=== PATIENT | male | born 1950 | race Caucasian/White ===

== ENCOUNTER 2018-07-19 05:15 | Day surgery (SDC) | payer MEDICARE, OTHER ==
[2018-07-18 11:26] LABS: HEMATOCRIT 46.4 % (42.0-54.0); HEMOGLOBIN 15.7 g/dL (13.5-17.5); MCH 29.6 pg (26.0-34.0); MCHC 33.8 g/dL (31.0-37.0); MCV 87.5 fL (80.0-100.0); MEAN PLATELET VOLUME 9.6 fL (7.4-10.4); RBC 5.3 10x6/uL (4.20-6.10); RDW 14.1 % (11.5-14.5); WBC 7.4 10x3/uL (4.8-10.8)
[~2018-07-19] VITALS: Ht 180.3 cm; Wt 86.2 kg
--- NOTE | ~2018-07-19 | OP ---
PATIENT NAME: MINNA NGUYEN MEDICAL RECORD: [id number] :50 LOCATION:[facility] ADMISSION DATE: SURGEON: CANDICE THURMAN MD DATE OF OPERATION: 07/19/2018 SURGEON: Candice Thurman MD ANESTHESIA: General anesthesia by Tristan Tipton. DIAGNOSIS: Elevated PSA of 5.18. FINDINGS: A 33-gram prostate with intraprostatic stones. No hypoechoic areas. PROCEDURE: Transrectal ultrasound and prostate biopsy. SPECIMENS: Prostate biopsy cores. BLOOD LOSS: None. CLINICAL HISTORY: This is a 67-year-old male, who was found to have an elevated PSA of 5.18. He has not previously had a PSA level tested before. He has relatively mild voiding symptoms. There is no family history of prostate cancer. He comes today to have a prostate biopsy. He was not allergic to any medications and we gave him Ancef test consultant to the OR. DESCRIPTION OF PROCEDURE: The patient was given general anesthetic. He was then placed into dorsal lithotomy position. The transrectal ultrasound probe was introduced. We found the prostate size dimensions. Sextant biopsies were then obtained with at least 3 cores from each sextant. Once we obtained all the cores, the procedure was terminated. The patient was then brought to the recovery room. I will see him next week to review the pathology results with him. TRANSINT:[id number] Voice Confirmation ID: [id number] DOCUMENT ID: [id number] CANDICE THURMAN MD at 1334 CC: [id number] DICTATION DATE: 07/19/18 08 SHIPPING & RECEIVING LEAD: 07/19/18 1112 [facility] [place] 07/19/[address] [id number]
[2018-07-19 06:35] VITALS: BP 125/65; Ht 180.3 cm; Wt 86.2 kg
== END 2018-07-19 09:45 | disposition home or self-care (01) ==
LOC: D.OPS 05:15 → D.PAN 07:30 → D.OPS 08:00 → D.PAN 08:00 → D.OPS 09:45
PROVIDERS: Anesthesiology
DX: R97.20 Elevated prostate specific antigen [PSA] (principal); N41.1 Chronic prostatitis; Z01.812 Encounter for preprocedural laboratory examination

== ENCOUNTER → 2019-07-11 14:25 | Outpatient (CLI) | payer MEDICARE, OTHER ==
[2018-07-19 06:35] VITALS: BMI 26.5
== END | disposition home or self-care (01) ==
LOC: D.HCCARDIO 14:25
PROVIDERS: ATTEND Internal Medicine Cardiovascular Disease
DX: R94.31 Abnormal electrocardiogram [ECG] [EKG] (principal)

== ENCOUNTER → 2019-07-28 08:13 | Outpatient (CLI) | payer MEDICARE, OTHER ==
[2018-07-19 06:35] VITALS: BMI 26.5
== END | disposition home or self-care (01) ==
LOC: D.HCCARDIO 08:13
PROVIDERS: ATTEND Internal Medicine Cardiovascular Disease
DX: R94.31 Abnormal electrocardiogram [ECG] [EKG] (principal)

== ENCOUNTER → 2020-10-22 08:36 | Outpatient (CLI) | payer MEDICARE, OTHER ==
[2018-07-19 06:35] VITALS: BMI 26.5
== END | disposition home or self-care (01) ==
LOC: D.HCCECHO 08:36
PROVIDERS: ATTEND Internal Medicine Cardiovascular Disease
DX: I10 Essential (primary) hypertension (principal)